=== PATIENT | female | born 1980 ===

== ENCOUNTER 2018-03-07 20:07 | Emergency (ER) | payer OTHER ==
[2018-03-07 21:07] VITALS: O2SAT 99
[2018-03-07] MEDS ORDERED: Sodium Chloride 0.9% 1,000 ML IV STA (21:38)
--- NOTE | 2018-03-07 21:55 | ED PDOC ---
HPI: Influenza Time Seen by Provider: 03/07/18 21:30 Chief Complaint: Fever Chief Complaint (Provider): Fever History Per: Patient Exam Limitations: no limitations Onset/Duration Of Symptoms: Days (x2) Additional complaint(s):: 37 year old female referred to ED by PCP for evaluation of flu-like symptoms including general bodyaches, fatigue, fever, chills, and headache for 2 days. She denies any nausea, vomiting, or diarrhea. Patient reports taking Advil earlier this morning and did not receive flu shot this year. PCP: Dr. Christopher Cooper Past Medical History Reviewed: Historical Data, Nursing Documentation, Vital Signs Vital Signs: Last Vital Signs Temp 101.2 F H 03/07/18 21:04 Pulse 99 H 03/07/18 21:04 Resp 20 03/07/18 21:04 BP 131/82 03/07/18 21:04 Pulse Ox 99 03/07/18 21:04 - Medical History PMH: No Chronic Diseases - Surgical History Surgical History: No Surg Hx - Family History Family History: States: Unknown Family Hx - Home Medications Home Medications: Ambulatory Orders Medication Instructions Recorded Oseltamivir [Tamiflu] 75 mg PO BID #10 cap 03/07/18 - Allergies Allergies/Adverse Reactions: Allergies Allergy/AdvReac Type Severity Reaction Status Date / Time No Known Allergies Allergy Verified 03/07/18 21:04 Review of Systems ROS Statement: Except As Marked, All Systems Reviewed And Found Negative Constitutional: Positive for: Fever, Chills, Malaise (fatigue), Other (bodyaches) Gastrointestinal: Negative for: Nausea, Vomiting, Diarrhea Neurological: Positive for: Headache Physical Exam - Reviewed Nursing Documentation Reviewed: Yes Vital Signs Reviewed: Yes - Physical Exam Appears: Positive for: Uncomfortable Head Exam: Positive for: ATRAUMATIC, NORMAL INSPECTION, NORMOCEPHALIC Skin: Positive for: Warm (febrile) Eye Exam: Positive for: Normal appearance, EOMI, PERRL. Negative for: Other (photophobia) ENT: Positive for: Normal ENT Inspection. Negative for: Pharyngeal Erythema, Tonsillar Swelling Neck: Positive for: Normal, Supple Cardiovascular/Chest: Positive for: Chest Non Tender, Tachycardia. Negative for: Regular Rate, Rhythm Respiratory: Positive for: Normal Breath Sounds. Negative for: Wheezing, Respiratory Distress Gastrointestinal/Abdominal: Positive for: Normal Exam, Soft. Negative for: Tenderness Extremity: Positive for: Normal ROM (upper/lower) Neurologic/Psych: Positive for: Alert, Oriented Medical Decision Making Medical Decision Making: Initial Impression: 37 year old female with signs of influenza. Initial Plan: * Labs * IV fluids * Tamiflu cap 75mg PO * Toradol 30mg IV * Tylenol 975mg PO * Blood culture 0000 --labs showed no significant abnormalities. In spite of negative flu swab, will treat due to high clinical suspicion based on presenting signs and symptoms. Patient reports improvement in symptoms. Diagnosed with influenza like illness. Upon provider reevaluation patient is feeling better, is medically stable, and requires no further treatment in the ED at this time. Patient will be discharged home. Counseling was provided and all questions were answered regarding diagnosis. There is agreement to discharge plan. Return if symptoms persist or worsen. Scribe Attestation: Documented by Yancy Pirce, acting as a scribe for Lion Greene MD. Provider Scribe Attestation: All medical record entries made by the Scribe were at my direction and personally dictated by me. I have reviewed the chart and agree that the record accurately reflects my personal performance of the history, physical exam, medical decision making, and the department course for this patient. I have also personally directed, reviewed, and agree with the discharge instructions and disposition. - Laboratory Results Result Diagrams: 03/07/18 22:15 03/07/18 22:15 - ECG O2 Sat by Pulse Oximetry: 99 (RA) Pulse Ox Interpretation: Normal Disposition - Clinical Impression Clinical Impression: Influenza - Patient ED Disposition Is Patient to be Admitted: No - Disposition Disposition: Routine/Home Disposition Time: 00:00 Condition: STABLE Prescriptions: Oseltamivir [Tamiflu] 75 mg PO BID #10 cap Instructions: Flu Forms: [facility] (Sinhala) Print Language: CYPRIOT
[2018-03-07 22:33] LABS: BASO % 0.5 % (0.0-2.0); EOS % 0.1 % (0.0-4.0); HEMOGLOBIN 13.3 g/dL (12.0-16.0); LYMPH # 1.4 K/uL (1.0-4.3); LYMPH % 17.5 % (20.0-40.0); MEAN CELL VOLUME 88.3 fl (81.0-99.0); MEAN CORPUSCULAR HGB CONC 32.8 g/dL (33.0-37.0); MEAN PLATELET VOLUME 8.7 fl (7.2-11.7); MONO # 0.5 K/uL (0.0-0.8); NEUT # 5.8 K/uL (1.8-7.0); NEUT % 74.9 % (50.0-75.0); RBC 4.6 Mil/uL (3.80-5.20); RED CELL DISTRIBUTION WIDTH 13.1 % (11.5-14.5); WHITE BLOOD COUNT 7.7 K/uL (4.8-10.8)
[2018-03-07 22:46] LABS: ALB/GLOB RATIO 1.3 (1.0-2.1); ALBUMIN 4.5 g/dL (3.5-5.0); ALT/SGPT 57 U/L (9-52); AST/SGOT 36 U/L (14-36); BLOOD UREA NITROGEN 7 mg/dl (7-17); CALCIUM 9.5 mg/dL (8.4-10.2); GFR NON-AFRICAN AMERICAN > 60
[2018-03-07 23:50] VITALS: BP 100/57; PULSE 92; RESP 18; TEMP 98.7
== END 2018-03-08 00:05 | disposition home or self-care (01) ==
LOC: H.ER 20:07
DX: J11.1 Influenza due to unidentified influenza virus with other respiratory manifestations (principal)
CPT/HCPCS: 80053; 81025; 83605; 85025; 87040; 87804; 96360; 99284; J1885; J7030